=== PATIENT | female | born 1985 | race Caucasian/White ===

== ENCOUNTER 2022-01-02 15:27 | Inpatient (IN) | payer MEDICAID ==
[~2022-01-02] VITALS: Ht 154.9 cm; Wt 65.8 kg
[2022-01-02 15:45] VITALS: BP 111/67
--- NOTE | 2022-01-02 15:48 | NUR ---
wheelchair to bed 04 at this time
[2022-01-02] MEDS ORDERED: ACETAMINOPHEN EXTRA STRENGTH 500 MG TAB PO ONE (15:50)
--- NOTE | 2022-01-02 15:51 | NUR ---
kris swabbed at this time
[2022-01-02] MEDS ORDERED: NACL 0.9% 1,000 ML IV ONE (16:25)
[2022-01-02] MEDS ORDERED: KETOROLAC 15 MG/ML VIAL IVP ONE (16:25)
[2022-01-02 16:57] LABS: BASOPHILS % (AUTO) 0.2 % (0.0-2.0); HEMATOCRIT 23.1 % (36-48); LYMPHOCYTES # (AUTO) 0.8 K/uL (2.5-16.5); LYMPHOCYTES % (AUTO) 6.4 % (20.5-51.1); MEAN CORPUSCULAR HEMOGLOBIN 18 pg (27-31); MEAN CORPUSCULAR HGB CONC 30 g/dL (33-37); MEAN CORPUSCULAR VOLUME 60.8 fL (80-94); MONOCYTES # (AUTO) 0.6 K/uL (0.8-1.0); MONOCYTES % (AUTO) 5.4 % (1.7-9.3); NEUTROPHILS # (AUTO) 10.6 K/uL (1.8-7.7); PLATELET COUNT (AUTO) 430 K/uL (140-450); RED BLOOD CELL COUNT(AUTO) 3.79 MIL/uL (4.20-5.40); RED CELL DISTRIBUTION WIDTH 17.1 % (11.6-13.7)
[2022-01-02 17:11] LABS: HEMOGLOBIN 6.8 g/dL (12.0-16.0)
[2022-01-02 17:12] LABS: ALBUMIN 3.7 g/dL (3.4-5.0); ANION GAP 15.2 (8-16); ASPARTATE AMINOTRANSFERASE 12 U/L (15-37); CARBON DIOXIDE 23.4 mmol/L (21-32); CHLORIDE 102 mmol/L (98-107); CREATININE 0.8 mg/dL (0.6-1.3); GFR ARICAN-AMERICAN 104 mL/min (>90); GLUCOSE 94 mg/dL (74-106); LIPASE 109 U/L (73-393); POTASSIUM 3.6 mmol/L (3.5-5.1); SODIUM SERUM 137 mmol/L (136-145); TOTAL BILIRUBIN 0.4 mg/dL (0.0-1.0); UREA NITROGEN, BLOOD 10 mg/dL (7-18)
[2022-01-02 17:45] LABS: PROTHROMBIN TIME 10.3 secs (10.8-13.4)
[2022-01-02] MEDS ORDERED: CEFEPIME 1,000 MG in DEXTROSE 5% 50 ML IV ONE (18:20)
[2022-01-02] MEDS ORDERED: VANCOMYCIN 1,000 MG in DEXTROSE 5% 250 ML IV ONE (18:20)
[2022-01-02] MEDS ORDERED: ACETAMINOPHEN 325 MG TAB PO PRN ×2 (18:25→18:50)
[2022-01-02] MEDS ORDERED: ONDANSETRON 4 MG/2 ML VIAL IVP PRN ×2 (18:25→18:50)
[2022-01-02] MEDS ORDERED: MORPHINE SULFATE 2 MG/ML SYR IVP PRN ×2 (18:25→18:50)
[2022-01-02] MEDS ORDERED: VANCOMYCIN 1,000 MG VIAL ONE (18:45)
[2022-01-02] MEDS ORDERED: CEFEPIME 1,000 MG VIAL ONE (18:46)
[2022-01-02] MEDS ORDERED: ZOLPIDEM 10 MG TAB PO PRN (18:50)
[2022-01-02] MEDS ORDERED: DOCUSATE SODIUM 100 MG GELCAP PO PRN (18:50)
[2022-01-02] MEDS ORDERED: POTASSIUM CHLORIDE 10 MEQ TABER PO PRN (18:50)
--- NOTE | 2022-01-02 18:58 | NUR ---
PT WAS TAKEN TO RADIOLOGY FOR CHEST XRAY.
[2022-01-02 20:08] LABS: APPEARANCE,URINE CLEAR (CLEAR); COLOR,URINE YELLOW (YELLOW)
[2022-01-02 20:09] LABS: BILIRUBIN,URINE NEGATIVE (NEGATIVE); BLOOD, URINE NEGATIVE (NEGATIVE); LEUKOCYTE ESTERASE ,URINE NEGATIVE (NEGATIVE); NITRITE, URINE NEGATIVE (NEGATIVE); UGLUCOSE NEGATIVE (NEGATIVE)
--- NOTE | 2022-01-02 20:40 | NUR ---
Vital signs taken before adminisrtation of blood. Verification checked and obtained from ER nurse Homer GALINDO .
--- NOTE | 2022-01-02 20:45 | NUR ---
Consent signed per Fifi Johnson agreeing to administration of blood. Blood has been type and crossmatched. Blood sent from blood bank. Information on unit of blood checked against patient wristband at bedside by two nurses. All information matches. Patient or responsible democrat informed of potential complications associated with blood transfusion. Informed of possible transfusion reaction symptoms. Aware of need to notify nurse at once of itching, shortness of breath, flushing, feeling of impending doom, or other symptoms not previously present. Vital signs taken within 5 minutes prior to initiation of transfusion. RN will remain with patient for first 15 minutes of transfusion at which time vital signs will be re-assessed.
--- NOTE | 2022-01-02 21:00 | NUR ---
Reassessment. Patient resting comfortably in bed, no s/s of transfusion reaction, vital signs stable.
--- NOTE | 2022-01-02 23:29 | NUR ---
First unit of blood completed, no reaction. Patient is resting comfortably in bed.
[2022-01-03] MEDS ORDERED: MAG SULF 2000 MG/WATER PREMIX 50 ML IV PRN
--- NOTE | 2022-01-03 00:29 | NUR ---
Scientific Photographer delivered new blood tubing to floor for second unit transfusion.
--- NOTE | 2022-01-03 00:36 | NUR ---
Patient started having chills. Warm blanket applied to patient. Patient does not have rash and patient states "no pain." Dr. Westbrook verbally notified. Dr. Westbrook stated, "hold the second unit, recheck the blood pressure in the morning." Patient's temperature is 99.3 F oral. Verbal readback confirmed, second unit of blood not opened or given and second unit of blood held and returned to blood bank. Addendum: 01/03/22 at 0057 by [id number] Patient started having chills. Warm blanket applied to patient. Patient does not have rash and patient states "no pain." Dr. Westbrook verbally notified. Dr. Westbrook verbally informed patient's temperature is 99.3 F oral, BP 127/50. Dr. Westbrook stated, "hold the second unit, recheck the blood pressure in the morning." Verbal readback confirmed, second unit of blood not opened or given and second unit of blood held and returned to blood bank. Addendum: 01/03/22 at 0702 by [id number] Patient started having chills. Warm blanket applied to patient. Patient does not have rash and patient states "no pain." Dr. Westbrook verbally notified. Dr. Westbrook stated, "hold the second unit, recheck the blood pressure in the morning." Patient's temperature is 99.3 F oral. Verbal readback confirmed. Both first unit fully transfused bag and second unit of blood not opened or given returned to blood bank. Blood bank staff physically took position of both first transfused bag of blood and unopened second unit of blood.
--- NOTE | 2022-01-03 01:05 | NUR ---
Dr. Westbrook called and verbally informed patient's temp is 102.1, BP 143/95, HR 113. Dr. Westbrook verbally acknowledged and instructed to give the 650 mg tylenol PRN.
[2022-01-03] MEDS ORDERED: HYDROcodone/APAP 5/325 MG 1 TAB TAB PO PRN (01:10)
--- NOTE | 2022-01-03 01:15 | NUR ---
Removed 650mg from [facility]. Dropped one tab. disposed of both tabs. Two new tablets drawn from [facility]. 650mg given PO.
--- NOTE | 2022-01-03 02:14 | NUR ---
Patient's temp is now 103.1. Cooling measures applied. Dr. Westbrook called and verbally informed. Dr. Westbrook verbalized understanding, new orders given for colling measures, toradol 30mg IV, and 25 mg benadryl PO. readback complete. Medications ordered per Dr. Westbrook. Cooling measures applied. Addendum: 01/03/22 at 0354 by [email or web address] Patient's temp is now 103.1. Cooling measures applied. Dr. Westbrook called and verbally informed of new vital signs, including temperature. Dr. Westbrook verbally informed [address]. [address]. Westbrook verbalized understanding, new orders given for colling measures, toradol 30mg IV, and 25 mg benadryl PO. readback complete. Medications ordered per Dr. Westbrook. Cooling measures applied. Addendum: 01/03/22 at 0404 by [email or web address] Patient's temp is now 103.1. Cooling measures applied. Dr. Westbrook called and verbally informed of new vital signs, including temperature and 2/[address] Westbrook verbally informed [address] Westbrook verbalized understanding, new orders given for colling measures, toradol 30mg IV, and 25 mg benadryl PO. readback complete. Medications ordered per Dr. Westbrook. Cooling measures applied.
[2022-01-03] MEDS ORDERED: KETOROLAC 30 MG/ML VIAL IVP SCH (02:20)
--- NOTE | 2022-01-03 05:17 | NUR ---
Dr. Westbrook verbally informed of patient's vital signs and temp 99.1 F oral, BP 114/53, HR 87, O2 sat 100% on room air, RR 18, and pain 0/10. Dr. Westbrook verbalized being aware, no new orders.
[2022-01-03 06:13] LABS: BASOPHILS # (AUTO) 0.1 K/uL (0.00-0.22); BASOPHILS % (AUTO) 0.7 % (0.0-2.0); EOSINOPHILS % (AUTO) 0.1 % (0.0-4.0); HEMATOCRIT 24.7 % (36-48); HEMOGLOBIN 7.6 g/dL (12.0-16.0); LYMPHOCYTES # (AUTO) 0.7 K/uL (2.5-16.5); LYMPHOCYTES % (AUTO) 5.6 % (20.5-51.1); MEAN CORPUSCULAR HEMOGLOBIN 20 pg (27-31); MEAN CORPUSCULAR HGB CONC 31 g/dL (33-37); MEAN CORPUSCULAR VOLUME 64.6 fL (80-94); NEUTROPHILS # (AUTO) 10.3 K/uL (1.8-7.7); NEUTROPHILS % (AUTO) 85.6 % (42.2-75.2); PLATELET COUNT (AUTO) 372 K/uL (140-450); RED BLOOD CELL COUNT(AUTO) 3.83 MIL/uL (4.20-5.40); RED CELL DISTRIBUTION WIDTH 20.2 % (11.6-13.7)
[2022-01-03 06:34] LABS: ANION GAP 11.8 (8-16); CARBON DIOXIDE 24.7 mmol/L (21-32); CREATININE 0.7 mg/dL (0.6-1.3); POTASSIUM 3.5 mmol/L (3.5-5.1)
--- NOTE | 2022-01-03 06:58 | NUR ---
Notified by Blood bank that they are asking if Dr. Steven Westbrook would like to order transfusion reaction test. Dr. Steven Westbrook asked if he would like a transfusion reaction test ordered, and Dr. Steven Westbrook verbalized understanding, stating "sure order please." Charge Nurse Corey informed. Addendum: 01/03/22 at 0706 by [email or web address] Notified by Blood bank that they are asking if Dr. Setven Westbrook would like to order transfusion reaction test. Dr. Steven Westbrook asked if he would like a transfusion reaction test ordered, and Dr. Steven Westbrook verbalized understanding, stating "sure order please." Verbally instructed by Charge Nurse Corey to informed Dr. Westbrook that blood bank said "there is no need to order transfusion reaction test because patient is stable now." Dr. Steven Westbrook verbally informed that blood bank said "there is no need to order transfusion reaction test because patient is stable now." Dr. Steven Westbrook verbalized understanding.
--- NOTE | 2022-01-03 07:09 | NUR ---
Estefania garcia informed patient's name is Hiwot, not Patty. Estefania garcia verbalized that they "will reprint wrist band." Addendum: 01/03/22 at 0710 by [email or web address] Estefania garcia informed patient's name is Patty, not Hiwot. Estefania garcia verbalized that they "will reprint wrist band."
--- NOTE | 2022-01-03 07:52 | NUR ---
Change of shift report given to AM shift nurse Cheryl. AM shift nurse Cheryl verbalized understanding of report, no further questions.
--- NOTE | 2022-01-03 07:55 | NUR ---
Report recieved from JOSIE Ulrich for transfer of care.
--- NOTE | 2022-01-03 08:12 | NUR ---
Patient will be admitted to care of Dr. Rodarte. Admited to Telemetry. Will go to room 126-b. Belongings list completed. Report to JOSIE Mares.
--- NOTE | 2022-01-03 08:26 | NUR ---
The patient's care was reviewed and supervised by Lidia Patrick, RN, RN.
--- NOTE | 2022-01-03 08:30 | NUR ---
Admitted from , with chief complaint of FEVER, SORE THROAT, DIFFICULTY BREATHING, 36 y/o ,Female, Cooperative, oriented to call light, bed, phone,television, bathroom, smoking policy, visiting hours, procedures, ID bracelet on. MRSA SWAB TAKEN. Belongings list checked. RECEIVED REPORT FROM ER NURSE, PT ON ROOM AIR, NO SOB NOTED, SATURATING @ 100%, IV TO LEFT HAND 20G, PATENT INTACT. INITIAL ASSESSMENT DONE, ALL SAFETY PRECAUTION MET, CALL LIGHT WITHIN REACH, WILL CONTINUE TO MONITOR.
[2022-01-03] MEDS ORDERED: NACL 0.9% 1,000 ML IV SCH (08:40)
--- NOTE | 2022-01-03 08:40 | NUR ---
PT BP 90/54, NOTIFIED DR OG REGARDING LOW BP, PER DR TO ORDER 1L NS BOLUS. WILL CONTINUE WITH ORDERS.
--- NOTE | 2022-01-03 09:00 | NUR ---
SPOKE TO DR OG REGARDING PT HGB YESTERDAY AND TODAY, HEPARIN ORDERED, PER DR OG TO HOLD HEPARIN, WILL CONTINUE TO MONITOR.
[2022-01-03 09:59] VITALS: BP 90/54
--- NOTE | 2022-01-03 10:00 | NUR ---
SPOKE TO DR OG REGARDING PT BP STILL LOW, SBP IN THE 80S DR. OG AWARE, WILL PUT IN ORDERS FOR FLUIDS. WILL CONTINUE WITH ORDERS.
[2022-01-03] MEDS: SODIUM FERRIC GLUCONATE 125 MG in NACL 0.9% 100 ML IV SCH (10:20)
[2022-01-03] MEDS: NACL 0.9% 1,000 ML IV SCH ×2 (10:21→18:10)
--- NOTE | 2022-01-03 11:58 | NUR ---
INFORMED DR JUARES REGARDING CONSULT, AWAITING FOR CALL BACK.
[2022-01-03 12:00] VITALS: BP 94/63
--- NOTE | 2022-01-03 12:34 | NUR ---
DR. JUARES CONFIRMED CONSULT. WILL SEE PT LATER.
--- NOTE | 2022-01-03 14:38 | NUR ---
DC PLANNIN YRS OLD FEMALE PATIENT WAS ADMITTED FROM HOME WITH A DX OF ANEMIA. PATIENT LANGLEY A HX OF ENDOMETRIOSIS. CXR NEGATIVE RAPID COVID TEST NEGATIVE. CT ABD AND PELVIC US SHOWED SUGGESTED FIBROIDS H/H ON ADMISSION 6.8/23.1 TRANSFUSED 2 UNIT OF PRBC. POST TRANSFUSION H/H 7.6/24.7 . ADMINISTERED IV IRON. CONSULTED WITH PRODUCTION AIDE . DC PLAN TO GO HOME WHEN STABLE. CM TO FOLLOW Addendum: 01/04/22 at 1115 by Kyleigh Barrera RN DC PLANNING: H/H WENT DOWN POST TRANSFUSION 6.9/22.8 SEEN BY PRODUCTION AIDE. DISCUSSED FOR POSSIBLE HYSTERECTOMY IF PT AGREED. CONTINUE IV FERRLECIT. DC PLAN TO GO HOME WHEN STABLE CM TO FOLLOW
--- NOTE | 2022-01-03 15:05 | NUR ---
PATIENT HAS BEEN SCREENED AND CATEGORIZED LOW NUTRITION RISK. PATIENT WILL BE SEEN WITHIN 7 DAYS OF ADMISSION. 01/09/[address]
[2022-01-03 16:00] VITALS: BP 119/78
--- NOTE | 2022-01-03 19:16 | NUR ---
ENDORSED PT TO ORTHOPEDIC CODER NURSE FOR CONTINUOUS OF CARE.
--- NOTE | 2022-01-03 19:17 | NUR ---
RECEIVED ENDORSEMENT FROM DAY SHIFT NURSE FOR CONTINUITY OF PT CARE. PT IS ON BED, AWAKE, ALERT AND ORIENTED. PT ABLE TO RESPONSE VERBALLY IN [place]. SALINE LOCK ON LEFT HAND 20G INTACT AND PATENT. IV FLUID OF NORMAL SALINE INFUSING WELL AT 125 ML/HR. NO SIGN/SYMPTOM OF INFECTION OR PHLEBITIS ON IV SITE. WILL CONTINUE TO MONITOR.
[2022-01-03 20:00] VITALS: BP 117/77
--- NOTE | 2022-01-03 20:30 | NUR ---
PT AMBULATING INDEPENDENTLY TO RESTROOM. PT DENIES OF HEADACHE OR CHEST PAIN. SHE VERBALIZES OF MILD AND TOLERABLE PAIN ON LEFT ABDOMINAL AREA. PT CONSUMED 30% OF MEAL PREPARED.
--- NOTE | 2022-01-03 23:00 | NUR ---
PT USES RESTROOM INDEPENDENTLY WITH STEADY GAIT.
[2022-01-04] VITALS (7 sets, daily range): BP systolic 100–122; BP diastolic 60–77
[2022-01-04] MEDS: NACL 0.9% 1,000 ML IV SCH ×3 (02:23→18:24)
--- NOTE | 2022-01-04 04:10 | NUR ---
PT SOUNDLY SLEEPING. IV FLUIDS IS INFUSING WELL. NO SOB OR DISTRESS.
[2022-01-04 06:01] LABS: ANION GAP 12.2 (8-16); CARBON DIOXIDE 23.1 mmol/L (21-32); CREATININE 0.5 mg/dL (0.6-1.3); POTASSIUM 3.3 mmol/L (3.5-5.1)
[2022-01-04 07:03] LABS: BASOPHILS # (AUTO) 0.1 K/uL (0.00-0.22); BASOPHILS % (AUTO) 0.9 % (0.0-2.0); EOSINOPHILS # (AUTO) 0.1 K/uL (0-0.4); EOSINOPHILS % (AUTO) 1.3 % (0.0-4.0); HEMATOCRIT 22.8 % (36-48); LYMPHOCYTES % (AUTO) 21.1 % (20.5-51.1); MEAN CORPUSCULAR HEMOGLOBIN 20 pg (27-31); MEAN CORPUSCULAR HGB CONC 30 g/dL (33-37); MEAN CORPUSCULAR VOLUME 65.4 fL (80-94); MONOCYTES % (AUTO) 10.7 % (1.7-9.3); NEUTROPHILS # (AUTO) 6.2 K/uL (1.8-7.7); PLATELET COUNT (AUTO) 337 K/uL (140-450); RED BLOOD CELL COUNT(AUTO) 3.49 MIL/uL (4.20-5.40); RED CELL DISTRIBUTION WIDTH 20.4 % (11.6-13.7); WHITE BLOOD COUNT (AUTO) 9.4 K/uL (4.8-10.8)
--- NOTE | 2022-01-04 07:10 | NUR ---
PT IS ON STABLE CONDITION. IV FLUID IS INFUSING WELL. ALL SAFETY MEASURES IN PLACE. CALL LIGHT WITHIN THE REACH. ENDORSED TO DAY SHIFT NURSE FOR CONTINUITY OF PT CARE.
--- NOTE | 2022-01-04 07:11 | NUR ---
RECEIVED BEDSIDE REPORT FROM GAS PLANT OPERATOR NURSE FOR CONTINUOUS OF CARE, PT RESTING, NO DISTRESS NOTED, IV TO LEFT HAND 20G PATENT INTACT, INFUSING NS @ 125ML/HR, INFUSING WELL. PT ON ROOM AIR NO SOB NOTED. INITIAL ASSESSMENT DONE, ALL SAFETY PRECAUTION MET, CALL LIGHT WITHIN REACH, WILL CONTINUE TO MONITOR.
[2022-01-04 07:51] LABS: HEMOGLOBIN 6.9 g/dL (12.0-16.0)
[2022-01-04 08:08] LABS: FOLIC ACID 10.3 ng/mL (>3.0)
--- NOTE | 2022-01-04 09:00 | NUR ---
HEPARIN DUE HELD DUE TO PT HGB KEEPS GOING DOWN. WILL CONTINUE TO MONITOR.
[2022-01-04] MEDS: SODIUM FERRIC GLUCONATE 125 MG in NACL 0.9% 100 ML IV SCH (10:15)
[2022-01-04] MEDS: ACETAMINOPHEN 325 MG TAB PO SCH ×2 (11:34→16:00)
--- NOTE | 2022-01-04 13:13 | NUR ---
BLOOD TRANSFUSION STARTED, PT TOLERATED WELL, NO DISTRESS NOTED, WILL CONTINUE TO MONITOR.
--- NOTE | 2022-01-04 19:17 | NUR ---
ENDORSED PT TO CORPORATE DEVELOPMENT INTERN NURSE FOR CONTINUOUS OF CARE.
--- NOTE | 2022-01-04 19:17 | NUR ---
RECEIVED ENDORSEMENT FROM DAY SHIFT NURSE FOR CONTINUITY OF PT CARE. PT IS AWAKE, ALERT AND VERBALLY RESPONSIVE. PT CONTINUE WITH REGULAR DIET, SHE CONSUMED 25% OF FOOD SERVED. SALINE LOCK INTACT AND PATENT, IV FLUID OF NORMAL SALINE INFUSING WELL AT 125ML/HR, NO SIGN/SYMPTOM OF INFECTION. PT DENIES OF PAIN ON ABDOMEN OR ANY OTHER ELSE ON THE BODY. PT VERBALIZED OF NO BLOOD OR BLEEDING FROM PRIVATE AREA. PT ALSO STATED SHE FEELS BETTER AFTER RECEIVE BLOOD TRANSFUSION. CONTINUE TO MONITOR.
--- NOTE | 2022-01-04 19:18 | NUR ---
ENDORSED PT TO VIDEO RECORDER MECHANIC NURSE FOR CONTINUOUS OF CARE.
--- NOTE | 2022-01-04 22:00 | NUR ---
PT IS USING RESTROOM INDEPENDENTLY.
[2022-01-05] VITALS: BP 113/73
--- NOTE | 2022-01-05 | NUR ---
PT IS AWAKE AND ALERT. PT DENIES OF HAVING PAIN, NO ANY BLOOD OR BLEEDING FROM DIANE AREA. VITALS CHECKS B/P-113/73, P-78, T-98.5, R-18, O2 SAT-98% RA. PT USES RESTROOM WITH NO ASSIST.
[2022-01-05 04:00] VITALS: BP 117/68
[2022-01-05] MEDS: NACL 0.9% 1,000 ML IV SCH ×2 (05:09→11:09)
[2022-01-05 05:22] LABS: BASOPHILS # (AUTO) 0.1 K/uL (0.00-0.22); BASOPHILS % (AUTO) 1.4 % (0.0-2.0); EOSINOPHILS # (AUTO) 0.1 K/uL (0-0.4); EOSINOPHILS % (AUTO) 1.7 % (0.0-4.0); HEMATOCRIT 28.4 % (36-48); HEMOGLOBIN 8.9 g/dL (12.0-16.0); LYMPHOCYTES # (AUTO) 2.1 K/uL (2.5-16.5); LYMPHOCYTES % (AUTO) 25.2 % (20.5-51.1); MEAN CORPUSCULAR HEMOGLOBIN 22 pg (27-31); MEAN CORPUSCULAR HGB CONC 31 g/dL (33-37); MEAN CORPUSCULAR VOLUME 68.9 fL (80-94); MONOCYTES # (AUTO) 0.8 K/uL (0.8-1.0); MONOCYTES % (AUTO) 10.1 % (1.7-9.3); NEUTROPHILS % (AUTO) 61.6 % (42.2-75.2); PLATELET COUNT (AUTO) 378 K/uL (140-450); RED BLOOD CELL COUNT(AUTO) 4.12 MIL/uL (4.20-5.40); WHITE BLOOD COUNT (AUTO) 8.2 K/uL (4.8-10.8)
[2022-01-05 06:17] LABS: ANION GAP 12.1 (8-16); CARBON DIOXIDE 24.6 mmol/L (21-32); CREATININE 0.6 mg/dL (0.6-1.3); POTASSIUM 3.7 mmol/L (3.5-5.1)
--- NOTE | 2022-01-05 07:25 | NUR ---
ENDORSED PT TO DAY SHIFT NURSE FOR CONTINUITY OF PT CARE. PT IS ON BED, AWAKE, ALERT AND ORIENTED. PT ABLE TO RESPONSE VERBALLY IN [place]. SALINE LOCK ON LEFT HAND INTACT AND PATENT. IV FLUID OF NORMAL SALINE INFUSING WELL. NO SIGN/SYMPTOM OF INFECTION OR PHLEBITIS ON IV SITE. ALL SAFETY MEASURES IN PLACE. CALL LIGHT WITHIN THE REACH.
--- NOTE | 2022-01-05 07:25 | NUR ---
RECEIVED REPORT FROM APPLIED EXERCISE PHYSIOLOGIST RNSHABNAM, FOR CONTINUITY OF CARE. PT A&OX4, PERBACILIO. ROOM AIR. SR ON MONITOR. 20G IV TO L HAND INFUSING NS AT 125 ML/HR. BOWEL SOUNDS ACTIVE. CONTINENT OF BOWEL AND BLADDER. AMBULATORY TO RESTROOM. STANDARD PRECAUTION. BED IN LOWEST POSITION, CALL LIGHT WITHIN REACH.
[2022-01-05 08:00] VITALS: BP 106/67
[2022-01-05] MEDS: SODIUM FERRIC GLUCONATE 125 MG in NACL 0.9% 100 ML IV SCH (10:33)
--- NOTE | 2022-01-05 11:25 | NUR ---
ENDORSED REPORT TO RN FOR CONTINUITY OF CARE.
--- NOTE | 2022-01-05 11:27 | NUR ---
RECEIVED REPORT FROM LUCI RN, PT AOX4, SERBIAN SPEAKING, RESTING IN BED WITH FAMILY AT BEDSIDE, H&H STABLE THIS AM S/P 2 UNITS OF PRBC, BED LOCKED AND IN LOWEST POSITION, NO ACUTE DISTRESS, SAFETY MEASURES MAINTAINED, WILL CONTINUE TO MONITOR.
[2022-01-05] MEDS ORDERED: MEDR10TA PO (11:30)
--- NOTE | 2022-01-05 11:30 | NUR ---
RECEIVED BEDSIDE REPORT FROM JOSIE CALLOWAY FOR CONTINUOUS OF CARE, PT RESTING, NO DISTRESS NOTED, IV TO LEFT FA 20G PATENT INTACT, INFUSING WELL. PT ON ROOM AIR, NO SOB NOTED. WILL CONTINUE TO MONITOR.
[2022-01-05 12:00] VITALS: BP 104/76
--- NOTE | 2022-01-05 13:40 | NUR ---
DISCHARGE INSTRUCTION GIVEN USING STITCH BONDING MACHINE TENDER EVELYN #[id number]. PT STATED UNDERSTANDING, ALL QUESTIONS ANSWERED. Addendum: 01/05/22 at 1349 by Suzan Maria RN IV TAKEN OUT, CATH INTACT, WRISTBANDS TAKEN OFF.
--- NOTE | 2022-01-05 13:53 | NUR ---
PT LEFT UNIT IN STABLE CONDITION, NO DISTRESS NOTED.
== END 2022-01-05 15:20 | disposition home or self-care (01) | DRG 532 ==
LOC: MED 15:27 → MTU 18:28 → MMU 01-03 05:18
PROVIDERS: ADMIT Family Medicine; ATTEND Family Medicine
PROC: 30233N1 Transfusion of Nonautologous Red Blood Cells into Peripheral Vein, Percutaneous Approach (ICD-10-PCS; principal; 2022-01-02)
DX: D25.9 Leiomyoma of uterus, unspecified (principal); I95.89 Other hypotension; R65.10 Systemic inflammatory response syndrome (SIRS) of non-infectious origin without acute organ dysfunction; N80.9 Endometriosis, unspecified; D50.9 Iron deficiency anemia, unspecified; N93.9 Abnormal uterine and vaginal bleeding, unspecified; Z20.822 Contact with and (suspected) exposure to COVID-19; E86.1 Hypovolemia
CPT/HCPCS: 36415; 36430; 71046; 76830; 80048; 80053; 81003; 81025; 82607; 82728; 82746; 83036; 83540; 83605; 83690; 83735; 84484; 85025; 85610; 85730; 86886; 86900; 86901; 86920; 87040; 87081; 93005; 96365; 96367; 96375; 99285; J0692; J1644; J1885; J2916; J3370; P9016; Q0092; Q0163